=== PATIENT | female | born 1960 | race Caucasian/White ===

== ENCOUNTER 2017-01-20 23:02 | Inpatient (IN) | payer BC ==
[~2017-01-20] VITALS: Ht 157.5 cm; Wt 66.7 kg
[~2017-01-20 23:02] MED LIST: BACLOFEN10 MG PO; BUTALBITAL ACET1 CAP PO; FLE10 PO; LAC PO; LEUCOVORIN CALCI5 MG PO; LYRICA150 M1 PO; MED4 PO; MELOXICAM15 M1 PO; METHOTREXATE2.5 M2 PO; MOTRIN800 MG PO; ONDANSETRON4 M3 PO; OTEZLA30 MG PO; PANTOPRAZOLE SO40 M1 PO; SYNTHROID0.112 MG PO; ZIT250 PO
--- NOTE | 2017-01-20 23:18 | NUR ---
EKG IN PROGRESS
[2017-01-21] VITALS (8 sets, daily range): BP systolic 151–193; BP diastolic 71–102
--- NOTE | 2017-01-21 00:18 | NUR ---
PATIENT SEEN WITH COMPLAINT OF VOMITING , CHEST PAIN AND BEING SHAKY. WAS SEEN IN URGENT CARE EARLIER
--- NOTE | 2017-01-21 00:53 | NUR ---
PT AMBULATED TO RESTROOM WITH STEADY GAIT TO VOID.
[2017-01-21 00:55] LABS: BASOPHIL % 0.1 % (0-2); PLATELET COUNT 339 x10^3mcL (130-400)
[2017-01-21 00:57] LABS: RED CELL DISTRIBUTION WIDTH 15.3 % (11.5-14.5)
[2017-01-21 01:15] LABS: CALCIUM 9.9 mg/dL (8.5-10.1); CARBON DIOXIDE 17.9 mmol/L (21-32)
[2017-01-21 01:22] LABS: UA SPECIFIC GRAVITY 1.025 (1.005-1.035); microscopic required? YES; urine erythrocyte 2+ (NEGATIVE)
[2017-01-21 01:28] LABS: ALBUMIN 3.9 g/dL (3.4-5.0); BILIRUBIN TOTAL 0.78 mg/dL (0.20-1.00); FREE T4 0.82 ng/dL (0.76-1.46)
[2017-01-21 01:32] LABS: TOTAL PROTEIN, SERUM 8.5 g/dL (6.4-8.2)
[2017-01-21] MEDS ORDERED: VAS1025 PO (02:42)
[2017-01-21] MEDS ORDERED: FOLGARD1 TAB PO (02:42)
[2017-01-21] MEDS ORDERED: LEXAPRO5 M1 (02:43)
--- NOTE | 2017-01-21 03:30 | NUR ---
RECEIVED PT FROM ED. PT C/O CHEST PAIN 08/13, BLOOD PRESSURE 193/102, TEMP 101.2. DR ARRINGTON INFORMED. MEDICATED PER EMAR. ORIENTED PT TO ROOM. BED IN LOWEST POSITION, SIDE RAILS UP X2, CALL LIGHT WITHIN REACH. WILL CONTINUE TO MONITOR.
[2017-01-21 04:19] LABS: MAGNESIUM 1.4 mg/dL (1.8-2.4); PHOSPHOROUS 3.2 mg/dL (2.5-4.9)
[2017-01-21 04:20] LABS: CHOLESTEROL/HDL RATIO 3.3
--- NOTE | 2017-01-21 04:34 | NUR ---
BLOOD PRESSURE 157/91, TEMP REDUCED TO 99.6 POST MEDICATION ADMINISTRATION. WILL CONTINUE TO MONITOR.
--- NOTE | 2017-01-21 06:40 | NUR ---
PT SLEPT PERIODICALLY THROUGHOUT NIGHT, NO ACUTE DISTRESS. ALL NEEDS MET AND ATTENDED TO. NO SIGNIFICANT CHANGES. IV PATENT AND INTACT. BED IN LOWEST POSITION, SIDE RAILS UP X2, CALL LIGHT WITHIN REACH. WILL ENDORSE CARE TO ONCOMING NURSE.
--- NOTE | 2017-01-21 07:14 | NUR ---
PT RECEIVED DURING CHANGE OF SHIFT, A/OX4, TELE 38, NSR, DENIES CHEST PAIN, PULSES PRESENT, NO EDEMA NOTED, LUNGS CTA ON RA, BREATHING EVEN AND UNLABORED, DENIES SOB, BOWEL SOUNDS ACTIVE, CURRENTLY DENIES N/V, LBM 01/20/17 FORMED, ABLE TO VOID, MILD GENERALIZED WEAKNESS, SKIN WARM/DRY/INTACT, DENIES ALL PAIN AT THIS TIME, IV TO LAC INFUSING NS AT 100ML/HR, CALL LIGHT WITHIN REACH, WILL CONTINUE TO MONITOR.
--- NOTE | 2017-01-21 08:40 | NUR ---
PT GIVEN ZOFRAN FOR NAUSEA, INEFFECTIVE, PT VOMITED MEDICATIONS, WILL INFORM RESIDENT.
--- NOTE | 2017-01-21 09:30 | NUR ---
PT STATES ZOFRAN INEFFECTIVE, DR. POPE MADE AWARE.
--- NOTE | 2017-01-21 10:07 | NUR ---
PT GIVEN PHENERGEN PER DR. POPE, PT STATED SOME ALLEVIATION OF NAUSEA, ABLE TO TAKE MEDICATIONS, DENIES SOB, DENIES PAIN, CALL LIGHT WITHIN REACH, WILL CONTINUE TO MONITOR.
--- NOTE | 2017-01-21 10:29 | NUR ---
DR. MEJIA AND RESIDENTS MAKING ROUNDS, PLAN OF CARE DISCUSSED.
--- NOTE | 2017-01-21 11:15 | NUR ---
PT ASLEEP, NO INDICATION OF PAIN, BREATHING EVEN AND UNLABORED, CALL LIGHT WITHIN REACH, WILL CONTINUE TO MONITOR.
--- NOTE | 2017-01-21 12:09 | NUR ---
Initial Nutrition Assessment- Dx: vomiting x 3 days, chest pain, shaking, TAMAR, metabolic acidosis. PMHx: hypothyroidism, RA, fibromyalgia, RA, GERD PSHx: appendectomy, cholecystectomy, , gastric bypass, hip replacement, rt shoulder reapir Labs: Na 138, K 3 L, Glucose 149 H, BUN 27 H, Cr 2 H, Total protein 8.5 H, Alb 3.9, Ca 9.9, Phos 3.2, TG 158 H, Chol 212 H, LDL 119 H, HDL 64 H, Lipase 122, Hgb 12.9, HCT 39, HgbA1c 5.4. Meds: aspirin, Ativan, Colace, flagyl, hydralazine, hydrochlorothiazide, levaquin, Lipitor, Lopressor, lyrica, mag sulfate in sodium chl 0.9%, magnesium sulfate, Mylanta, norco, protonix, reglan, synthroid, sodium chl 0.9%, synthroid, Tylenol, Zestril, zofran Diet: NPO except meds PO Intakes: NPO Ht: 62 inches (5'2") Wt: 66.81 kg (147 pounds) BMI: 26.9 kg/m2, overweight for age. IBW: 110 pounds %IBW: 134% AdjBW due to > 125%IBW: 54 kg UBW: Unable to obtain; patient sleeping. Age: 56 Food Allergies: No known food allergies Skin: Guzman 19 Edema: None noted GI: Last BM 01/20/17, noted vomiting Pt admitted with dx: SIRS, chest pain 2/2 costochondritis vs GERD, r/o ACS, VMN, hypokalemia, hematuria, anxiety. Per RN, patient experienced N/V this morning, Zofran and Phenergan given, remains NPO. Patient asleep at time of visit, unable to interview. Estimated Nutritional Needs Based on adjusted body weight of 54 kg due to patient > 125%IBW. Energy: 7438-3731 kcal/d (25-30 kcal/kg for adult maintenance, TAMAR) Protein: 32-43 gm/d (0.6-0.8 gm/kg for adult maintenance, TAMAR) Fluid: 1609-9617 mL/d (1 mL/kcal) or per MD. Nutrition Diagnosis 1. Altered GI function related to pathophysiological causes as evidenced by vomiting x 3 days. 2. Overweight for age related to energy imbalance as evidenced by BMI of 26.9 kg/m2. Intervention/RDN Recommendation(s): 1. When medically appropriate per MD, consider initiating cardiac diet. Monitor/Evaluate Goal: Initiation of oral nutrition with intake via PO intakes to meet least 75% of estimated needs. Monitor: Diet advancement, PO intakes and/or nutrition support tolerance, Labs, GI function F/U in 3-5 days as moderate risk (01/24-)
--- NOTE | 2017-01-21 12:09 | NUR ---
RDN Recommendation(s): 1. Continue NPO as medically appropriate per MD. 2. When medically appropriate per MD, consider initiating clear liquid diet and advancing to cardiac diet as tolerated. 3. Consult RDN prn.
--- NOTE | 2017-01-21 12:14 | NUR ---
PT DENIES SOB, DENIES PAIN, C/O NAUSEA, MEDICATED PER EMAR, FAMILY AT BEDSIDE, CALL LIGHT WITHIN REACH, WILL CONTINUE TO MONITOR.
--- NOTE | 2017-01-21 13:14 | NUR ---
PT ASLEEP, NO INDICATION OF PAIN, BREATHING EVEN AND UNLABORED, CALL LIGHT WITHIN REACH, WILL CONTINUE TO MONITOR.
--- NOTE | 2017-01-21 14:08 | NUR ---
PT ASLEEP, NO INDICATION OF PAIN, BREATHING EVEN AND UNLABORED, CALL LIGHT WITHIN REACH, WILL CONTINUE TO MONITOR.
--- NOTE | 2017-01-21 15:17 | NUR ---
PT ASLEEP, NO INDICATION OF PAIN, BREATHING EVEN AND UNLABORED, CALL LIGHT WITHIN REACH, WILL CONTINUE TO MONITOR.
--- NOTE | 2017-01-21 16:20 | NUR ---
ECHO IN PROGRESS.
--- NOTE | 2017-01-21 17:01 | NUR ---
DR. POPE AT BEDSIDE ASSESSING PT.
--- NOTE | 2017-01-21 18:13 | NUR ---
PT C/O NASEA, WILL MEDICATE PER EMAR, UNABLE TO EAT DINNER, CALL LIGHT WITHIN REACH, WILL ENDORSE PT TO ONCOMING SHIFT.
--- NOTE | 2017-01-21 19:35 | NUR ---
PT SEEN, ASLEEP BUT EASILY AROUSABLE, ALERT AND ORIENTED, DENIES HEADACHE OR DIZZINESS, BREATHING EVEN AND UNLABORED, NO SOB, LUNG SOUNDS CLEAR, ON ROOM AIR WITH NO RESP DISTRESS NOTED, IVF INFUSING WELL, PULSES PALPABLE, NO EDEMA NOTED, MILD GENERALIZED WEAKNESS, AMBULATORY WITH MINIMAL ASSIST, ABD SOFT AND FLAT WITH ACTIVE BS, NO BM AT THIS TIME, POOR APPETITE AND C/O OF NAUSEOUS AT TIMES, VOIDING FREELY, NO DISTRESS NOTED, WILL KEEP TO MONITOR.
--- NOTE | 2017-01-21 22:58 | NUR ---
GRAIN DISTRIBUTOR CALLED REGARDING PT'S CT ABD/PELVIS WITH IV CONTRAST, UNABLE TO DO TEST AT THIS TIME DUE TO ELEVATED BUN/CR-27/2.0, MADE DR AGUIRRE AWARE, PER DR AGUIRRE WILL RE-DRAW PT'S LAB IN AM AND WILL DECIDE BY DAY TEAM.
[2017-01-22 01:45] LABS: AMPHETAMINE QUAL UR NONE DETECTED (NEG <=1000)
[2017-01-22 05:40] VITALS: BP 119/76
[2017-01-22 06:16] LABS: PLATELET COUNT 288 x10^3mcL (130-400)
--- NOTE | 2017-01-22 06:27 | NUR ---
PT AWAKE AND RESTING IN BED, SLEPT MOST OF NIGHT, C/O OF NAUSEOUS THIS MORNING, ZOFRAN 4MG VIA IVP ADMINISTERED, STILL WITH POOR APPETITE, OLD IV SITE INFILTRATED, REINSERTED TO LFA WITH 22G, NO DISTRESS NOTED, WILL KEEP TO MONITOR.
[2017-01-22 06:36] LABS: BASOPHIL % 0 % (0-2); RED CELL DISTRIBUTION WIDTH 15.7 % (11.5-14.5)
[2017-01-22 06:37] LABS: CARBON DIOXIDE 20.9 mmol/L (21-32); CREATININE SERUM 1.2 mg/dL (0.6-1.0); MAGNESIUM 1.8 mg/dL (1.8-2.4); PHOSPHOROUS 3.3 mg/dL (2.5-4.9); POTASSIUM SERUM 3.9 mmol/L (3.5-5.1)
--- NOTE | 2017-01-22 07:01 | NUR ---
PT RECEIVED DURING CHANGE OF SHIFT, ASLEEP BUT AROUSABLE, TELE 38, NSR, PULSES PRESENT, LUNGS CTA ON RA, BREATHING EVEN AND UNLABORED, BOWEL SOUNDS ACTIVE, REPORTS OF N/V DURING PREVIOUS SHIFT, ABLE TO VOID, MILD GENERALIZED WEAKNESS, AMBULATORY, SKIN WARM/DRY/INTACT, NO INDICATION OF PAIN, IV TO LFA INFUSING NS AT 100ML/HR, IV WNL, CALL LIGHT WITHIN REACH, WILL CONTINUE TO MONITOR.
--- NOTE | 2017-01-22 08:33 | NUR ---
PT STATES SHE ATE LITTLE FOOD, STATES AFTER EATING SHE FELT "PRESSURE" IN HER ABDOMEN, STATES NAUSEA MINIMAL, MEDS GIVEN, CALL LIGHT WITHIN REACH, WILL CONTINUE TO MONITOR.
--- NOTE | 2017-01-22 09:00 | NUR ---
PT TAKEN DOWN TO CT, WILL AWAIT PT'S RETURN.
--- NOTE | 2017-01-22 09:15 | NUR ---
PT RETURNED FROM CT.
[2017-01-22 09:54] VITALS: BP 114/73
--- NOTE | 2017-01-22 10:24 | NUR ---
PT DENIES SOB, C/O PAIN 07/13, C/O NAUSEA, MEDICATED PER EMAR, CALL LIGHT WITHIN REACH, WILL CONTINUE TO MONITOR.
--- NOTE | 2017-01-22 11:40 | NUR ---
PT DENIES SOB, STATES PAIN TOLERABLE, STATES NAUSEA TOLERABLE, CALL LIGHT WITHIN REACH, WILL CONTINUE TO MONITOR.
--- NOTE | 2017-01-22 12:13 | NUR ---
PT DENIES SOB, STATES ABD PAIN TOLERABLE, STATES NAUSEA TOLERABLE, CALL LIGHT WITHIN REACH, WILL CONTINUE TO MONITOR.
[2017-01-22 13:29] VITALS: BP 108/60
--- NOTE | 2017-01-22 14:19 | NUR ---
PT DENIES SOB, C/O ABD PAIN 07/13, WILL REFER TO EMAR, STATES "I WAS ONLY ABLE TO EAT TWO SMALL BITES OF MEAT AND DRANK ALL OF THE SOUP, BUT THEN I STARTED TO FEEL THE PAIN AGAIN", CALL LIGHT WITHIN REACH, WILL CONTINUE TO MONITOR.
--- NOTE | 2017-01-22 15:10 | NUR ---
PT DENIES SOB, C/O ABD PAIN 07/13, MEDICATED PER EMAR, CALL LIGHT WITHIN REACH, WILL CONTINUE TO MONITOR.
--- NOTE | 2017-01-22 16:21 | NUR ---
PT DENIES PAIN, DENIES SOB, NAUSEA TOLERABLE, CALL LIGHT WITHIN REACH, WILL CONTINUE TO MONITOR.
--- NOTE | 2017-01-22 16:33 | NUR ---
BP 88/50 (60), PT STATES ASYMPTOMATIC OF LOW BP, DR. POPE AWARE, PT TO BE MONITORED FOR NOW PER DR. POPE.
[2017-01-22 16:40] VITALS: BP 88/57
--- NOTE | 2017-01-22 17:26 | NUR ---
PT DENIES SOB, DENIES N/V, DENIES PAIN, REPORTS WATERY STOOL BEFORE DRINKING MAG CITRATE, PT DID NOT DRINK MAG CITRATE, DR. POPE AWARE, MEDICATION WASTED, CALL LIGHT WITHIN REACH, WILL CONTINUE TO MONITOR.
--- NOTE | 2017-01-22 18:10 | NUR ---
PT STATED "I JUST FEEL DRAINED AFTER EATING, LIKE REALLY TIRED.", CALL LIGHT WITHIN REACH, WILL ENDORSE PT TO NEXT SHIFT.
[2017-01-22 19:35] VITALS: BP 91/49
--- NOTE | 2017-01-22 20:04 | NUR ---
PT SEEN, RESTING IN BED, ALERT AND ORIENTED, DENIES HEADACHE OR DIZZINESS, BREATHING EVEN AND UNLABORED, NO SOB, LUNG SOUNDS CLEAR, ON ROOM AIR WITH NO RESP DISTRESS NOTED, ON TELE#38 NSR, DENIES CHEST PAIN, RECHECK PT'S BP-91/49, PT DENIES ANY DISCOMFORT, IVF INFUSING WELL, PULSES PALPABLE, NO EDEMA NOTED, MILD GENERALIZED WEAKNESS, AMBULATORY WITH MINIMAL ASSIST, ABD SOFT AND FLAT WITH ACTIVE BS, NO BM AT THIS TIME, HAD WATERY STOOL DURING THE DAY SHIFT, POOR APPETITE AND C/O OF NAUSEOUS AT TIMES, VOIDING FREELY, NO DISTRESS NOTED, WILL KEEP TO MONITOR.
--- NOTE | 2017-01-22 21:07 | NUR ---
ALL DUE MEDS GIVEN EXCEPT METOPROLOL AND HYDRALAZINE PO DUE TO SBP<100, PT C/O OF NAUSEOUS, ZOFRAN 4MG VIA IVP ADMINISTERED.
[2017-01-22 21:11] VITALS: BP 96/62
--- NOTE | 2017-01-22 22:33 | NUR ---
PT C/O OF GENERALIZED BODY PAIN, NORCO 1 TAB VIA ORAL ADMINISTERED.
--- NOTE | 2017-01-23 05:22 | NUR ---
PT ASLEEP BUT EASILY AROUSABLE, SLEPT MOST OF NIGHT, IVF INFUSING WELL, C/O OF GENERALIZED BODYACHE THIS MORNING, NORCO 1 TAB VIA ORAL ADMNISTERED, STILL WITH ON AND OFF NAUSEOUS, ZOFRAN GIVEN WITH GOOD RELIEF, NO BM DURING THE SHIFT, NO DISTRESS NOTED, WILL KEEP TO MONITOR.
[2017-01-23 05:48] VITALS: BP 129/79
[2017-01-23 07:23] LABS: CALCIUM 8.4 mg/dL (8.5-10.1); CARBON DIOXIDE 21.7 mmol/L (21-32); CREATININE SERUM 1.6 mg/dL (0.6-1.0); MAGNESIUM 1.6 mg/dL (1.8-2.4); PHOSPHOROUS 3.2 mg/dL (2.5-4.9); POTASSIUM SERUM 3.8 mmol/L (3.5-5.1)
--- NOTE | 2017-01-23 07:35 | NUR ---
RECEIVED THE PATIENT AWAKE AND ORIENTED TO PERSON, PLACE AND TIME. PATIENT C/O FATIGUE AND SOME PRESSURE IN EPIGASTRIC REGION, BUT TOLERABLE AT THIS TIME. CONTINUE TO MONITOR AND MEDICATE FOR PAIN PRN. IVF NS VIA H/L TO LFA. TELE # 38 READS SINUS RHYTHMS. CALL LIGHT WITHIN REACH. SIDE RAILS UP X3.
[2017-01-23 07:36] LABS: BASOPHIL % 0.6 % (0-2); PLATELET COUNT 218 x10^3mcL (130-400)
[2017-01-23 08:37] LABS: RED CELL DISTRIBUTION WIDTH 15.8 % (11.5-14.5)
--- NOTE | 2017-01-23 09:20 | NUR ---
DR. GABRIEL AND THE TEAM WERE MAKING ROUND TO SEE THE PATIENT. THE CARE PLAN WAS DISCUSSED WITH THE PATIENT, AND THE PATIENT AGREED WITH THE PLAN. DR. PPOE-RESIDENT WAS INFORMED THAT THE PATIENT'S BP 90/55, SO ALL THE BP MEDS THIS MORNING INCLUDING METOPROLOL 12.5 MG PO, HCTZ 25MG PO, AND LISINOPRIL 5MG PO WERE HELD THIS MORNING. DOCTOR AGREED WITH THAT.
[2017-01-23 09:33] VITALS: BP 90/55
[2017-01-23 13:54] VITALS: BP 92/51
[2017-01-23 17:12] VITALS: BP 98/68
--- NOTE | 2017-01-23 18:31 | NUR ---
DR. GUILLORY IN TO SEE THE PATIENT. THE PATIENT WAS INSTRUCTED NPO AFTER MIDNIGHT FOR EGD TOMORROW.
--- NOTE | 2017-01-23 19:20 | NUR ---
RECEIVED PT IN BED AWAKE, ALERT,ORIENTED X4. LUNGS CTA. NO SOB ON RA.BOWEL SOUNDS ACTIVE . PT C/O ABDL PAIN 10/13. NO C/O N/V. W/ HL TO LTFA INTACT. CALL LIGHT W/IN REACH.
[2017-01-23 21:19] VITALS: BP 99/68
[2017-01-23 21:40] LABS: BASOPHIL % 0.4 % (0-2); PLATELET COUNT 239 x10^3mcL (130-400)
[2017-01-23 21:41] LABS: RED CELL DISTRIBUTION WIDTH 15.4 % (11.5-14.5)
--- NOTE | 2017-01-24 05:30 | NUR ---
PT SLEPT AT LONG INTERVALS. SHE WAS MEDICATED FOR ABDL PAIN X1. NO N/V. PT HAD NO BM THIS SHIFT. PT KEPT ON NPO STATUS FOR EGD TODAY. W/ IVF D5NS AT 80 CC/HR VIA LTFA.
[2017-01-24 05:43] VITALS: BP 99/59
[2017-01-24 06:29] LABS: CALCIUM 8.4 mg/dL (8.5-10.1); CARBON DIOXIDE 23.6 mmol/L (21-32); CREATININE SERUM 1.5 mg/dL (0.6-1.0); MAGNESIUM 2.3 mg/dL (1.8-2.4); PHOSPHOROUS 3.5 mg/dL (2.5-4.9); POTASSIUM SERUM 4.1 mmol/L (3.5-5.1)
[2017-01-24 06:33] LABS: BASOPHIL % 0.6 % (0-2); PLATELET COUNT 220 x10^3mcL (130-400)
[2017-01-24 06:38] LABS: RED CELL DISTRIBUTION WIDTH 15.8 % (11.5-14.5)
--- NOTE | 2017-01-24 07:15 | NUR ---
RESUME CARE: PATIENT AWAKE AND ORIENTED TO PERSON, PLACE AND TIME. DENIED NAUSEA/VOMITING AT THIS TIME. PATIENT STATED HAVING MILD PRESSURE IN UPPER MIDDLE ABDOMEN AND TOLERATED WITH THE PAIN AT THIS TIME. IVF D5NS VIA H/L TO LFA. TELE # 38 READS SINUS RHYTHMS. CALL LIGHT WITHIN REACH. SIDE RAILS UP X3.
--- NOTE | 2017-01-24 07:20 | NUR ---
THE PATIENT WAS TAKEN TO GI LAB FOR EGD.
[2017-01-24 09:20] VITALS: BP 106/63
--- NOTE | 2017-01-24 09:20 | NUR ---
RECEIVING THE PATIENT BACK FROM RECOVERY ROOM S/P EGD. THE PATIENT ALERT AND ORIENTED TO PERSON, PLACE AND TIME. DENIED ANY NAUSEA/VOMITING OR PAIN AT THIS TIME. VS CHECKED (SEE VS DOC). IV H/L WAS CONNECTED TO IV LINE. CALL LIGHT WITHIN REACH. SIDE RAILS UP X3. WILL MEDICATE THE PATIENT WITH AM SCHEDULED MEDS.
--- NOTE | 2017-01-24 09:25 | NUR ---
DR. LAIRD AND THE TEAM WERE MAKIN ROUND TO SEE THE PATIENT. THE CARE PLAN WAS DISCUSSED WITH THE PATIENT, AND THE PATIENT AGREED WITH THE PLAN.
[2017-01-24] MEDS ORDERED: DIF100 PO (12:11)
[2017-01-24] MEDS ORDERED: FER300 PO (12:11)
[2017-01-24] MEDS ORDERED: CAR1 PO (12:12)
[2017-01-24] MEDS ORDERED: ZOF4 PO (12:24)
[2017-01-24 13:02] VITALS: BP 106/63
--- NOTE | 2017-01-24 14:29 | NUR ---
DISCHARGE INSTRUCTION WAS EXPLAINED THOROUGHLY TO THE PATIENT. QUESTIONS WERE ADDRESSED, AND THE PATIENT VERBALIZED UNDERSTANDING. H/L WAS REMOVED WITH THE CATH INTACT. THE PATIENT IS WAITING FOR A RIDE.
--- NOTE | 2017-01-24 14:58 | NUR ---
THE PATIENT WAS TAKEN TO THE DISCHARGE OFFICE VIA WHEELCHAIR IN STABLE CONDITION. ALL BELONGINGS WERE SENT HOME WITH THE PATIENT UPON DISCHARGE.
== END 2017-01-24 15:00 | disposition home or self-care (01) | DRG 871 ==
LOC: ED 23:02 → DU 01-21 02:19 → MU 01-24 09:08
PROVIDERS: Emergency Medicine; Internal Medicine Gastroenterology; ADMIT Family Medicine Sports Medicine
PROC: 0DB58ZX Excision of Esophagus, Via Natural or Artificial Opening Endoscopic, Diagnostic (ICD-10-PCS; principal; 2017-01-24 08:30)
PROC: 0DB68ZX Excision of Stomach, Via Natural or Artificial Opening Endoscopic, Diagnostic (ICD-10-PCS; 2017-01-24 08:30)
DX: A41.9 Sepsis, unspecified organism (principal); N17.0 Acute kidney failure with tubular necrosis; K22.10 Ulcer of esophagus without bleeding; K52.9 Noninfective gastroenteritis and colitis, unspecified; M06.9 Rheumatoid arthritis, unspecified; I10 Essential (primary) hypertension; E03.9 Hypothyroidism, unspecified; E87.6 Hypokalemia; M79.7 Fibromyalgia; K21.9 Gastro-esophageal reflux disease without esophagitis; Z90.49 Acquired absence of other specified parts of digestive tract; R65.10 Systemic inflammatory response syndrome (SIRS) of non-infectious origin without acute organ dysfunction; R31.9 Hematuria, unspecified; F41.9 Anxiety disorder, unspecified
CPT/HCPCS: 43235; 83880; 84439; 87046; 87046-59; 87804; C9113; J0360; J1200; J1610; J1956; J2250; J2310; J2405; J2550; J2765; J3010; J3475; J3480; J3490; J7030; J7042; J8610; Q0092

== ENCOUNTER 2017-03-24 17:43 | Emergency (ER) | payer BC ==
[~2017-03-24] VITALS: Ht 157.5 cm; Wt 62.1 kg
[~2017-03-24 17:43] MED LIST changes: +CAR1 PO; +DIF100 PO; +FER300 PO; +FOLGARD1 TAB PO; +LEXAPRO5 M1; +VAS1025 PO; +ZOF4 PO
[2017-03-24 17:52] VITALS: Ht 157.5 cm; Wt 62.1 kg
[2017-03-24 20:12] LABS: BASOPHIL % 1.8 % (0-2); PLATELET COUNT 300 x10^3mcL (130-400)
[2017-03-24 20:16] LABS: RED CELL DISTRIBUTION WIDTH 16.5 % (11.5-14.5)
[2017-03-24 20:18] LABS: CALCIUM 8.9 mg/dL (8.5-10.1); CREATININE SERUM 1.6 mg/dL (0.6-1.0); POTASSIUM SERUM 3.7 mmol/L (3.5-5.1)
[2017-03-24 20:23] LABS: BILIRUBIN TOTAL 0.51 mg/dL (0.20-1.00)
[2017-03-24 20:25] LABS: TOTAL PROTEIN, SERUM 5.9 g/dL (6.4-8.2)
[2017-03-24 20:26] LABS: ALBUMIN 2.4 g/dL (3.4-5.0)
[2017-03-24 21:35] VITALS: BP 126/81
== END 2017-03-24 21:35 | disposition home or self-care (01) ==
LOC: ED 17:43
PROVIDERS: Emergency Medicine
DX: K25.9 Gastric ulcer, unspecified as acute or chronic, without hemorrhage or perforation (principal); K21.9 Gastro-esophageal reflux disease without esophagitis; M79.7 Fibromyalgia; E07.9 Disorder of thyroid, unspecified; Z90.49 Acquired absence of other specified parts of digestive tract
CPT/HCPCS: C9113; J2270; J2405; J7030

== ENCOUNTER 2017-09-22 09:15 | Inpatient (IN) | payer BC ==
[~2017-09-22] VITALS: Ht 160 cm; Wt 65.9 kg
[2017-09-22 09:21] VITALS: Ht 160 cm; Wt 65.9 kg
[2017-09-22 09:54] LABS: PLATELET COUNT 158 x10^3mcL (130-400)
[2017-09-22 09:55] LABS: RED CELL DISTRIBUTION WIDTH 15.6 % (11.5-14.5)
[2017-09-22 10:17] LABS: CALCIUM 8.7 mg/dL (8.5-10.1); CREATININE SERUM 1.5 mg/dL (0.6-1.0); POTASSIUM SERUM 4.1 mmol/L (3.5-5.1)
[2017-09-22 10:21] LABS: BILIRUBIN TOTAL 0.21 mg/dL (0.20-1.00)
[2017-09-22 10:22] LABS: ALBUMIN 2.3 g/dL (3.4-5.0); TOTAL PROTEIN, SERUM 5.5 g/dL (6.4-8.2)
[2017-09-22 10:31] LABS: BAND NEUTROPHIL 0 % (0-10); BASOPHIL 0 % (0-2); MONOCYTE 6 % (0-7); SEGMENTED NEUTROPHILS 62 % (37-75)
[2017-09-22 10:32] LABS: PLATELET MORPHOLOGY PLATELETS NORMAL; rbc morphology (normal/abnorm) ABNORMAL (NORMAL)
[2017-09-22] MEDS ORDERED: HYDROCHLOROTHIA25 MG PO (10:34)
[2017-09-22] MEDS ORDERED: SYNTHROID0.112 MG PO (10:34)
[2017-09-22] MEDS ORDERED: LUNESTA2 M1 PO (10:36)
[2017-09-22] MEDS ORDERED: ESCITALOPRAM OX10 MG PO (10:36)
[2017-09-22] MEDS ORDERED: LOR PO (10:37)
[2017-09-22] MEDS ORDERED: FERROUS SULFAT325 M2 PO (10:37)
[2017-09-22 11:06] LABS: microscopic required? NO
[2017-09-22 11:22] LABS: FREE T4 0.93 ng/dL (0.76-1.46)
[2017-09-22 11:26] LABS: UA SPECIFIC GRAVITY 1.015 (1.005-1.035); urine erythrocyte NEGATIVE (NEGATIVE)
[2017-09-22 12:10] VITALS: BP 141/74
[2017-09-22 12:22] LABS: AMPHETAMINE QUAL UR NONE DETECTED (See below)
[2017-09-22 13:26] LABS: T3 TOTAL 0.72 ng/mL
[2017-09-22 13:50] LABS: CHOLESTEROL/HDL RATIO 3.4
[2017-09-22 13:52] LABS: FREE T4 0.96 ng/dL (0.76-1.46); FREE THYROXINE INDEX 1.8 ug/dL (1.4-4.5); T4(THYROXINE) 5.7 ug/dL (4.7-13.3)
[2017-09-22 18:00] VITALS: BP 117/52
[2017-09-22 20:00] VITALS: BP 123/69
[2017-09-23 04:16] VITALS: BP 132/74
[2017-09-23 07:11] LABS: IRON 28 ug/dL (50-170)
[2017-09-23 07:12] LABS: TOTAL IRON BINDING CAPACITY 206 ug/dL (250-450)
[2017-09-23 09:12] VITALS: BP 138/73
[2017-09-23 10:17] LABS: BASOPHIL % 0.7 % (0-2); PLATELET COUNT 166 x10^3mcL (130-400)
[2017-09-23 10:18] LABS: RED CELL DISTRIBUTION WIDTH 16.1 % (11.5-14.5)
[2017-09-23 10:48] LABS: CALCIUM 8.8 mg/dL (8.5-10.1); CARBON DIOXIDE 19.5 mmol/L (21-32); CREATININE SERUM 1.2 mg/dL (0.6-1.0); POTASSIUM SERUM 3.6 mmol/L (3.5-5.1)
[2017-09-23 12:34] VITALS: BP 149/77
[2017-09-23 14:57] VITALS: BP 111/63
[2017-09-23 16:24] VITALS: BP 111/63
== END 2017-09-23 17:40 | disposition home or self-care (01) | DRG 91 ==
LOC: ED 09:15 → DU 11:21
PROVIDERS: Emergency Medicine; Internal Medicine
DX: G92 Toxic encephalopathy (principal); N17.0 Acute kidney failure with tubular necrosis; E44.0 Moderate protein-calorie malnutrition; R55 Syncope and collapse; E03.9 Hypothyroidism, unspecified; D50.9 Iron deficiency anemia, unspecified; E78.5 Hyperlipidemia, unspecified; T50.905A Adverse effect of unspecified drugs, medicaments and biological substances, initial encounter; E66.01 Morbid (severe) obesity due to excess calories; M06.9 Rheumatoid arthritis, unspecified; I12.9 Hypertensive chronic kidney disease with stage 1 through stage 4 chronic kidney disease, or unspecified chronic kidney disease; N18.9 Chronic kidney disease, unspecified; Z96.641 Presence of right artificial hip joint; Z90.49 Acquired absence of other specified parts of digestive tract; Z79.899 Other long term (current) drug therapy; Z68.25 Body mass index [BMI] 25.0-25.9, adult; Z98.84 Bariatric surgery status; Y92.89 Other specified places as the place of occurrence of the external cause
CPT/HCPCS: 83880; 84439; C9113; G0480; J7030; Q0092

== ENCOUNTER 2020-01-21 12:56 | Emergency (ER) | payer BC ==
[~2020-01-21] VITALS: Ht 157.5 cm; Wt 53.1 kg
[~2020-01-21 12:56] MED LIST changes: +ESCITALOPRAM OX10 MG PO; +FERROUS SULFAT325 M2 PO; +HYDROCHLOROTHIA25 MG PO; +LOR PO; +LUNESTA2 M1 PO
[2020-01-21 13:10] VITALS: Ht 157.5 cm; Wt 53.1 kg
[2020-01-21 15:19] VITALS: BP 133/64
== END 2020-01-21 15:20 | disposition home or self-care (01) ==
LOC: ED 12:56
DX: S00.83XA Contusion of other part of head, initial encounter (principal); S80.02XA Contusion of left knee, initial encounter; S80.01XA Contusion of right knee, initial encounter; W18.40XA Slipping, tripping and stumbling without falling, unspecified, initial encounter; Y93.89 Activity, other specified; Y92.89 Other specified places as the place of occurrence of the external cause; Y99.8 Other external cause status